=== PATIENT | male | born 1960 | race Caucasian/White ===

== ENCOUNTER → 2019-03-24 | Outpatient (CLI) | payer BC ==
[2019-03-24 20:36] LABS: BASO % 0.2 % (0.0-1.0); EOS # 0.2 10^3/uL (0.0-0.5); EOS % 1.5 % (0.0-3.0); HEMATOCRIT 45.4 % (42.0-52.0); LYMPH # 2.7 10^3/uL (1.5-5.0); LYMPH % 21.6 % (24.0-44.0); MEAN CORPUSCULAR HEMOGLOBIN 30.1 pg (27.0-33.0); MEAN CORPUSCULAR VOLUME 91.2 fl (80.0-96.0); MONO % 8.2 % (0.0-5.0); NEUTROPHILS # 8.5 10^3/uL (1.5-8.5); PLATELET COUNT, AUTOMATED 298 10^3/uL (150-450); RED BLOOD COUNT 4.98 10^6/uL (4.30-6.10); WHITE BLOOD COUNT 12.5 10^3/uL (4.0-10.0)
[2019-03-24 20:44] LABS: ALBUMIN 3.7 GM/DL (3.2-5.2); ALT/SGPT 69 U/L (12-78); BILIRUBIN,TOTAL 0.5 MG/DL (0.2-1.0); BLOOD UREA NITROGEN 22 MG/DL (7-18); CALCIUM LEVEL 9.2 MG/DL (8.5-10.1); CARBON DIOXIDE LEVEL 30 MEQ/L (21-32); CHLORIDE LEVEL 104 MEQ/L (98-107); CREATININE FOR GFR 0.91 MG/DL (0.70-1.30); GLOMERULAR FILTRATION RATE > 60.0 (>56); GLUCOSE, FASTING 93 MG/DL (70-100); LIPASE 94 U/L (73-393); POTASSIUM SERUM 4.8 MEQ/L (3.5-5.1); SODIUM LEVEL 140 MEQ/L (136-145); TOTAL PROTEIN 6.6 GM/DL (6.4-8.2)
== END ==
LOC: M WUC 18:03
PROVIDERS: ATTEND Physician Assistant
DX: R10.9 Unspecified abdominal pain (principal)

== ENCOUNTER → 2019-03-25 | Outpatient (CLI) | payer BC ==
[~2019-03-25] MED LIST: ISOVUE-370 76% 100ML VIAL (Q9967) As Ordered ONE
--- NOTE | 2019-03-25 13:44 | REP ---
CT abdomen and pelvis without and with IV contrast: History: Abdomen pain. CT contrast dose: 100 mL of intravenous Isovue 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 The lung bases are clear on axial CT images. There is mild diffuse fatty infiltration of the liver. The liver is mildly enlarged with a midclavicular line craniocaudal span of 17.6 cm. No focal hepatic lesion is seen. There is a small quantity of fluid adjacent to the liver and spleen in the upper abdomen. There is no evidence of free intraperitoneal air. There is some mild ascites in the pelvic reflections as well. The spleen is normal in size and homogeneous in texture. No adrenal lesion is seen on either side. No abnormality is noted in the pancreas. There is a descending duodenal diverticulum. Gallbladder is unremarkable. No retroperitoneal mass or adenopathy is seen. The kidneys enhance symmetrically and are morphologically intact. There is no evidence of renal mass. Delayed postcontrast images show no filling defect in the collecting system. No bladder mass lesion is observed. Ureters describe a normal course to the urinary bladder. There is moderate mural thickening affecting most of the small intestinal bowel loops in the central abdomen consistent with enteropathy. No obstructive lesion is seen. There is some mild hyperenhancement. There is no evidence of pneumatosis intestinalis. No abscess or free air. The distal jejunum and ileum is most involved. No mural thickening is seen in the colon. There is left colonic diverticulosis without CT evidence of diverticulitis. The appendix is surgically absent. There is a small left inguinal hernia transmitting intra-abdominal fat. No bony destructive lesion is appreciated. Impression: 1. Fatty infiltration of the liver with mild hepatomegaly. 2. Extensive distal jejunal and ileal loop small bowel mural thickening consistent with inflammatory bowel disease or other enteropathy. 3. Minimal ascites. 4. Left inguinal hernia transmits a small quantity of abdominal fat. 5. Left colonic diverticulosis. 6. No evidence of free air, obstructive lesion, abscess, or mass. Electronically Signed by Yovany Newton MD 03/25/2019 02:30 P
== END ==
LOC: M RAD 11:04
PROVIDERS: ATTEND Physician Assistant
DX: K76.0 Fatty (change of) liver, not elsewhere classified (principal); K44.9 Diaphragmatic hernia without obstruction or gangrene; K57.90 Diverticulosis of intestine, part unspecified, without perforation or abscess without bleeding
CPT/HCPCS: 74178; Q9967

== ENCOUNTER → 2019-03-25 | Outpatient (CLI) | payer BC ==
--- NOTE | 2019-03-25 13:28 | REP ---
Abdomen series: Four views. History: Pain. Findings: Upright chest radiograph is unremarkable. There is no evidence of infiltrate or free subdiaphragmatic air. Heart size is normal. Supine and erect views of the abdomen show several loops of air-filled mildly dilated small bowel in the upper abdomen with air-fluid levels. There is air in the transverse colon and stool is seen in the ascending and descending segments without colonic distension. There is no evidence of free air. Vascular calcification is noted. No other pathologic calcification is seen. No mass lesion is seen. Impression: Dilated small bowel loops with air-fluid levels, question ileus versus obstruction. No evidence of free air. Electronically Signed by Yovany Newton MD 03/25/2019 02:29 P
== END ==
LOC: M WUC 10:11
PROVIDERS: ATTEND Physician Assistant
DX: R10.9 Unspecified abdominal pain (principal)

== ENCOUNTER 2019-07-03 06:44 | Day surgery (SDC) | payer BC ==
[~2019-07-03] VITALS: Ht 170.2 cm; Wt 90.7 kg
[~2019-07-03 06:44] MED LIST changes: -ISOVUE-370 76% 100ML VIAL (Q9967) As Ordered ONE; +MULTCAP PO; +NS 1,000 ML IV ONE
[2019-07-03] MEDS ORDERED: propofoL 200 MG/20 ML VIAL As Ordered ONE ×2 (07:08→07:40)
[2019-07-03] MEDS ORDERED: LIDOCAINE 2% INJ 100 MG/5 ML SDV (FOR ANES.) As Ordered ONE (07:08)
--- NOTE | 2019-07-03 07:49 | ROOR ---
Patient Name: Luther Penn Procedure Date: 07/03/2019 7:25 AM Date of : 1960 Age: 59 Room: [facility] Gender: Male Note Status: Finalized Procedure: Colonoscopy Indications: Hematochezia Providers: Jose Alfredo Rondno DO Referring MD: 1. No Referring Physician 1. No Referring Physician, Admin. Requesting Provider: Medicines: Propofol per Anesthesia Complications: No immediate complications. Procedure: Pre-Anesthesia Assessment: - Prior to the procedure, a History and Physical was performed, and patient medications and allergies were reviewed. The patient is competent. The risks and benefits of the procedure and the sedation options and risks were discussed with the patient. All questions were answered and informed consent was obtained. Patient identification and proposed procedure were verified by the physician, the nurse, the anesthesiologist and the limited radiology technician in the endoscopy suite. Mental Status Examination: alert and oriented. Airway Examination: normal oropharyngeal airway and neck mobility. Respiratory Examination: clear to auscultation. CV Examination: normal. Prophylactic Antibiotics: The patient does not require prophylactic antibiotics. Prior Anticoagulants: The patient has taken no previous anticoagulant or antiplatelet agents. ASA Grade Assessment: II - A patient with mild systemic disease. After reviewing the risks and benefits, the patient was deemed in satisfactory condition to undergo the procedure. The anesthesia plan was to use monitored anesthesia care (MAC). Immediately prior to administration of medications, the patient was re-assessed for adequacy to receive sedatives. The heart rate, respiratory rate, oxygen saturations, blood pressure, adequacy of pulmonary ventilation, and response to care were monitored throughout the procedure. The physical status of the patient was re-assessed after the procedure. The Colonoscope was introduced through the anus and advanced to the cecum, identified by appendiceal orifice and ileocecal valve. The colonoscopy was performed without difficulty. The patient tolerated the procedure well. Findings: Multiple medium-mouthed diverticula were found in the sigmoid colon. Estimated blood loss: none. Non-bleeding internal hemorrhoids were found during retroflexion. The hemorrhoids were Grade I (internal hemorrhoids that do not prolapse). The exam was otherwise without abnormality on direct and retroflexion views. Impression: - Diverticulosis in the sigmoid colon. - Non-bleeding internal hemorrhoids. - The examination was otherwise normal on direct and retroflexion views. - No specimens collected. Recommendation: - Patient has a contact number available for emergencies. The signs and symptoms of potential delayed complications were discussed with the patient. Return to normal activities tomorrow. Written discharge instructions were provided to the patient. - Repeat colonoscopy in 5-10 years for screening purposes. - Return to my office PRN. Jose Alfredo Rondon DO 07/03/2019 7:48:57 AM Electronically signed by Jose Alfredo Rondon DO Number of Addenda: 0 Note Initiated On: 07/03/2019 7:25 AM Estimated Blood Loss: Estimated blood loss was minimal.
[2019-07-03 08:11] VITALS: BP 124/82
== END 2019-07-03 08:11 | disposition home or self-care (01) ==
LOC: M OPP 06:44
PROVIDERS: ATTEND Surgery
DX: K92.1 Melena (principal); K64.0 First degree hemorrhoids; K57.30 Diverticulosis of large intestine without perforation or abscess without bleeding; Z88.2 Allergy status to sulfonamides

== ENCOUNTER 2020-12-18 09:14 | Emergency (ER) | payer BC ==
[~2020-12-18] VITALS: Ht 170.2 cm; Wt 95.5 kg
[~2020-12-18 09:14] MED LIST changes: -NS 1,000 ML IV ONE
[2020-12-18 09:46] LABS: BASO % 0.5 % (0.0-1.0); EOS # 0.1 10^3/uL (0.0-0.5); EOS % 1.6 % (0.0-3.0); HEMATOCRIT 43.2 % (42.0-52.0); HEMOGLOBIN 14.3 g/dl (13.5-17.5); LYMPH # 2.3 10^3/uL (1.5-5.0); LYMPH % 29.5 % (24.0-44.0); MEAN CORPUSCULAR HEMOGLOBIN 28.9 pg (27.0-33.0); MEAN CORPUSCULAR HGB CONC 33.1 g/dl (32.0-36.5); MEAN CORPUSCULAR VOLUME 87.4 fl (80.0-96.0); MONO # 0.7 10^3/uL (0.0-0.8); MONO % 9.3 % (2.0-8.0); NEUTROPHILS # 4.6 10^3/uL (1.5-8.5); NEUTROPHILS % 58.5 % (36.0-66.0); PLATELET COUNT, AUTOMATED 238 10^3/uL (150-450); RED BLOOD COUNT 4.94 10^6/uL (4.30-6.10); WHITE BLOOD COUNT 7.9 10^3/uL (4.0-10.0)
--- NOTE | 2020-12-18 09:50 | REP ---
INDICATION: CHEST PAIN COMPARISON: 03/25/2019 TECHNIQUE: Portable AP view of the chest FINDINGS: The mediastinum and cardiac silhouette are stable and within normal limits for portable technique. The lung shafer are clear without acute consolidation, effusion, or pneumothorax. Skeletal structures are intact. IMPRESSION: No acute cardiopulmonary process appreciated. <Electronically signed by Tylor Loredo > 12/18/20 [id number]
[2020-12-18 09:55] LABS: INR 0.89; PROTHROMBIN TIME 12.2 SECONDS (12.5-14.3)
[2020-12-18 09:56] LABS: PARTIAL THROMBOPLASTIN TIME 25.8 SECONDS (24.2-38.5)
[2020-12-18] MEDS ORDERED: ASPIRIN 81 MG CHEW TABLET PO ONE (10:00)
[2020-12-18 10:21] LABS: ALBUMIN 4.2 GM/DL (3.2-5.2); ALT/SGPT 53 U/L (12-78); BILIRUBIN,DIRECT < 0.1 MG/DL (0.0-0.2); BILIRUBIN,TOTAL 0.4 MG/DL (0.2-1.0); BLOOD UREA NITROGEN 21 MG/DL (7-18); CALCIUM LEVEL 8.7 MG/DL (8.5-10.1); CARBON DIOXIDE LEVEL 29 MEQ/L (21-32); CHLORIDE LEVEL 106 MEQ/L (98-107); CREATININE FOR GFR 0.78 MG/DL (0.70-1.30); FREE T4 0.66 NG/DL (0.76-1.46); GLOMERULAR FILTRATION RATE > 60.0 (>56); GLUCOSE, FASTING 136 MG/DL (70-100); LIPASE 105 U/L (73-393); NT-PRO BNP 187 PG/ML (<125); SODIUM LEVEL 139 MEQ/L (136-145); TOTAL PROTEIN 7.2 GM/DL (6.4-8.2)
[2020-12-18] MEDS ORDERED: HEPARIN SOD (PORCINE) 5000UNITS/ML 1ML VIAL/SYRINGE IV ONE (14:20)
[2020-12-18] MEDS ORDERED: HEPARIN DRIP 25,000 UNITS in IV 1 EA IV SCH (14:20)
[2020-12-18] MEDS ORDERED: CLOPIDOGREL 300 MG TAB (PLAVIX) PO ONE (14:20)
[2020-12-18 15:30] LABS: RSV AMPLIFICATION NEGATIVE (NEGATIVE)
[2020-12-18 16:43] VITALS: BP 137/79
--- NOTE | 2020-12-18 20:49 | ECGEPIP ---
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
--- NOTE | 2020-12-18 20:50 | ECGEPIP ---
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
--- NOTE | 2020-12-18 20:51 | ECGEPIP ---
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
== END 2020-12-18 16:53 | disposition short-term general hospital (02) ==
LOC: M ED 09:14
DX: I21.4 Non-ST elevation (NSTEMI) myocardial infarction (principal); Z88.2 Allergy status to sulfonamides
CPT/HCPCS: 71045; 80048; 80076; 83690; 83880; 84439; 84443; 84484; 85025; 85610; 85730; 87631; 93005; 93041; 94760; 96374; 99285; J1644

== ENCOUNTER → 2021-01-04 | Outpatient (REF) | payer BC, SELFPAY ==
[2021-01-04 13:43] LABS: HEMATOCRIT 34.3 % (42.0-52.0); HEMOGLOBIN 11.1 g/dl (13.5-17.5); MEAN CORPUSCULAR HEMOGLOBIN 29.6 pg (27.0-33.0); MEAN CORPUSCULAR HGB CONC 32.4 g/dl (32.0-36.5); MEAN CORPUSCULAR VOLUME 91.5 fl (80.0-96.0); PLATELET COUNT, AUTOMATED 473 10^3/uL (150-450); RED BLOOD COUNT 3.75 10^6/uL (4.30-6.10)
[2021-01-04 14:15] LABS: ALBUMIN 3.9 GM/DL (3.2-5.2); ALT/SGPT 89 U/L (12-78); BILIRUBIN,TOTAL 0.6 MG/DL (0.2-1.0); BLOOD UREA NITROGEN 21 MG/DL (7-18); CALCIUM LEVEL 9.5 MG/DL (8.5-10.1); CARBON DIOXIDE LEVEL 28 MEQ/L (21-32); CHLORIDE LEVEL 102 MEQ/L (98-107); CHOLESTEROL LEVEL 159 MG/DL (<200); CHOLESTEROL RISK RATIO 4.076 (<5); FREE T4 0.86 NG/DL (0.76-1.46); GLOMERULAR FILTRATION RATE > 60.0 (>56); GLUCOSE, FASTING 89 MG/DL (70-100); HDL CHOLESTEROL 39 MG/DL (>40); LDL CHOLESTEROL 76 MG/DL (<100); NON-HDL-C 120 MG/DL; POTASSIUM SERUM 5.1 MEQ/L (3.5-5.1); SODIUM LEVEL 135 MEQ/L (136-145); TRIGLYCERIDES LEVEL 220 MG/DL (<150)
== END ==
LOC: M SFHCADAM 09:54
PROVIDERS: ATTEND Family Medicine
DX: I25.810 Atherosclerosis of coronary artery bypass graft(s) without angina pectoris (principal); G47.33 Obstructive sleep apnea (adult) (pediatric); E78.5 Hyperlipidemia, unspecified; K76.0 Fatty (change of) liver, not elsewhere classified; E03.9 Hypothyroidism, unspecified; Z12.5 Encounter for screening for malignant neoplasm of prostate

== ENCOUNTER → 2021-04-15 | Outpatient (CLI) | payer BC ==
--- NOTE | 2021-04-19 16:13 | SLEEPCENT ---
DATE: 04/15/2021 ORDERED BY: KAY Field Nocturnal polysomnography was performed for evaluation of sleep physiology in this patient with a history of excessive somnolence and nonrestorative sleep. Eight hours and 34 minutes of data were reviewed. There were 356 minutes of sleep identified. Sleep latency was normal at 9 minutes. REM latency was normal at 57 minutes. Sleep architecture showed fragmentation and period of wake particularly late in the study. There were four REM periods noted. Overall sleep efficiency was 69.9%. The electrocardiogram showed a sinus rhythm with an average heart rate of 65 beats per minute. EEG showed normal waveforms for wake and sleep. There were 287 respiratory events identified of 10 seconds in duration or greater for an apnea-hypopnea index of 48.4. The events were primarily obstructive, not exclusive to sleep stage nor sleep position. Arousals from respiratory events occurred 22.2 times per hour, and oxygen desaturations were seen into the 70s. IMPRESSIONS: Severe obstructive sleep apnea syndrome (G47.33). Apnea-hypopnea index 48.4. RECOMMENDATION: The patient should be encouraged to return to [facility] for pressure therapy. In the interim, alcohol and sedative avoidance should be practiced and caution exercised during the operation of motor vehicles. cc: RYAN ROSARIO MD
== END ==
LOC: M SLEEP 20:00
PROVIDERS: ATTEND Physician Assistant
DX: R40.0 Somnolence (principal)

== ENCOUNTER → 2021-07-01 | Outpatient (CLI) | payer BC | LOC: M SLEEP 20:00 | PROVIDERS: ATTEND Physician Assistant | DX: G47.33 Obstructive sleep apnea (adult) (pediatric) (principal) ==

== ENCOUNTER → 2021-10-28 | Outpatient (REF) | payer BC ==
[2021-10-28 17:37] LABS: FREE T4 0.83 NG/DL (0.76-1.46); THYROID STIMULATING HORMONE 5.02 uIU/ML (0.358-3.740)
== END ==
LOC: M SFHCADAM 13:56
PROVIDERS: ATTEND Family Medicine
DX: E03.9 Hypothyroidism, unspecified (principal); R79.89 Other specified abnormal findings of blood chemistry

== ENCOUNTER → 2022-05-04 | Outpatient (REF) | payer BC ==
[2022-05-04 13:15] LABS: BASO % 0.3 % (0.0-1.0); EOS # 0.1 10^3/uL (0.0-0.5); EOS % 1.6 % (0.0-3.0); HEMATOCRIT 39.9 % (42.0-52.0); HEMOGLOBIN 12.9 g/dl (13.5-17.5); LYMPH # 1.9 10^3/uL (1.5-5.0); LYMPH % 25.2 % (24.0-44.0); MEAN CORPUSCULAR HEMOGLOBIN 28.7 pg (27.0-33.0); MEAN CORPUSCULAR HGB CONC 32.3 g/dl (32.0-36.5); MEAN CORPUSCULAR VOLUME 88.9 fl (80.0-96.0); MONO # 0.6 10^3/uL (0.0-0.8); NEUTROPHILS # 4.9 10^3/uL (1.5-8.5); NEUTROPHILS % 64.6 % (36.0-66.0); PLATELET COUNT, AUTOMATED 237 10^3/uL (150-450); RED BLOOD COUNT 4.49 10^6/uL (4.30-6.10); WHITE BLOOD COUNT 7.5 10^3/uL (4.0-10.0)
[2022-05-04 14:00] LABS: ALT/SGPT 72 U/L (12-78); BILIRUBIN,TOTAL 0.4 MG/DL (0.2-1.0); BLOOD UREA NITROGEN 18 MG/DL (7-18); CALCIUM LEVEL 9.2 MG/DL (8.8-10.2); CARBON DIOXIDE LEVEL 23 MEQ/L (21-32); CHLORIDE LEVEL 107 MEQ/L (98-107); CHOLESTEROL LEVEL 162 MG/DL (<200); CHOLESTEROL RISK RATIO 3.521 (<5); CREATININE FOR GFR 0.75 MG/DL (0.70-1.30); FERRITIN 590 NG/ML (26-388); GLOMERULAR FILTRATION RATE > 60.0 (>49); GLUCOSE, FASTING 94 MG/DL (70-100); HDL CHOLESTEROL 46 MG/DL (>40); LDL CHOLESTEROL 79 MG/DL (<100); NON-HDL-C 116 MG/DL; POTASSIUM SERUM 3.9 MEQ/L (3.5-5.1); SODIUM LEVEL 138 MEQ/L (136-145); TOTAL PROTEIN 6.9 GM/DL (6.4-8.2); TRIGLYCERIDES LEVEL 187 MG/DL (<150)
== END ==
LOC: M SFHCADAM 09:14
PROVIDERS: ATTEND Physician Assistant
DX: E03.9 Hypothyroidism, unspecified (principal); E78.5 Hyperlipidemia, unspecified; R79.89 Other specified abnormal findings of blood chemistry; Z12.5 Encounter for screening for malignant neoplasm of prostate

== ENCOUNTER → 2022-06-14 | Outpatient (CLI) | payer BC | LOC: M SOG 08:02 | PROVIDERS: ATTEND Orthopaedic Surgery Hand Surgery | DX: M67.432 Ganglion, left wrist (principal) ==

== ENCOUNTER → 2022-06-15 | Outpatient (CLI) | payer BC | LOC: M SOG 13:30 | PROVIDERS: ATTEND Orthopaedic Surgery Hand Surgery | DX: M67.432 Ganglion, left wrist (principal) ==

== ENCOUNTER → 2022-07-06 | Outpatient (REF) | payer BC ==
[2022-07-06 14:11] LABS: HEMOGLOBIN A1c 5.6 % (4.0-6.0)
== END ==
LOC: M SFHCADAM 13:10
PROVIDERS: ATTEND Physician Assistant
DX: Z68.36 Body mass index [BMI] 36.0-36.9, adult (principal)

== ENCOUNTER → 2022-07-07 | Outpatient (CLI) | payer BC ==
[2022-07-07 17:16] LABS: BLOOD UREA NITROGEN 23 MG/DL (9-23); GLOMERULAR FILTRATION RATE > 60.0 (>49)
== END ==
LOC: M LAB 15:46
PROVIDERS: ATTEND Physician Assistant
DX: M25.832 Other specified joint disorders, left wrist (principal)

== ENCOUNTER → 2022-07-11 | Outpatient (CLI) | payer BC ==
[~2022-07-11] MED LIST changes: +PROHANCE 279.3MG/ML 15ML VIAL ONE; +PROHANCE 279.3MG/ML 5ML VIAL ONE
== END ==
LOC: M PLAIMG 13:44
PROVIDERS: ATTEND Orthopaedic Surgery Hand Surgery
DX: D17.79 Benign lipomatous neoplasm of other sites (principal)

== ENCOUNTER → 2022-09-05 | Outpatient (CLI) | payer BC ==
[~2022-09-05] MED LIST changes: +ASPI81TA26 PO; +ATOR80TA59 PO; +METO75TA PO; -PROHANCE 279.3MG/ML 15ML VIAL ONE; -PROHANCE 279.3MG/ML 5ML VIAL ONE; +SYNT50TA PO
== END ==
LOC: M LABSMTC 10:14
PROVIDERS: ATTEND Anesthesiology
DX: Z01.818 Encounter for other preprocedural examination (principal); Z11.52 Encounter for screening for COVID-19

== ENCOUNTER 2022-09-08 06:02 | Day surgery (SDC) | payer BC ==
[~2022-09-08] VITALS: Ht 170.2 cm; Wt 108.9 kg
[2022-09-08] MEDS ORDERED: LR 1,000 ML IV SCH (06:40)
[2022-09-08] MEDS ORDERED: ceFAZolin SOD 2 GM in IV 1 EA IV ONE (07:00)
[2022-09-08] MEDS ORDERED: propofoL 200 MG/20 ML VIAL As Ordered ONE (07:00)
[2022-09-08] MEDS ORDERED: LIDOCAINE 2% 100MG/5ML SDV (FOR ANES.) As Ordered ONE (07:00)
[2022-09-08] MEDS ORDERED: ONDANSETRON 4MG 2ML VIAL As Ordered ONE (07:00)
[2022-09-08] MEDS ORDERED: fentaNYL 100 MCG/2 ML INJECTION As Ordered ONE (07:02)
[2022-09-08] MEDS ORDERED: MIDAZOLAM INJ 2MG/2ML VIAL As Ordered ONE (07:02)
[2022-09-08] MEDS ORDERED: BACITRACIN OINTMENT 30GM TUBE As Ordered ONE (07:10)
[2022-09-08] MEDS: BUPIVACAINE HCL 0.25% 30ML VIAL As Ordered ONE ×2 (08:00→08:20)
[2022-09-08] MEDS ORDERED: KETOROLAC 60MG 2ML VIAL As Ordered ONE (08:03)
[2022-09-08] MEDS ORDERED: MORPHINE 2 MG/ML 1ML VIAL IV PRN (08:15)
[2022-09-08] MEDS ORDERED: fentaNYL 100 MCG/2 ML INJECTION IV PRN (08:15)
[2022-09-08] MEDS ORDERED: oxyCODONE 5MG TAB PO PRN (08:15)
[2022-09-08] MEDS ORDERED: ONDANSETRON 4MG 2ML VIAL IV PRN (08:15)
[2022-09-08 09:28] VITALS: BP 138/94
== END 2022-09-08 09:30 | disposition home or self-care (01) ==
LOC: M SDC 06:02
PROVIDERS: ATTEND Orthopaedic Surgery Hand Surgery
DX: D17.22 Benign lipomatous neoplasm of skin and subcutaneous tissue of left arm (principal); I25.10 Atherosclerotic heart disease of native coronary artery without angina pectoris; I10 Essential (primary) hypertension; E03.9 Hypothyroidism, unspecified; G47.30 Sleep apnea, unspecified; Z95.1 Presence of aortocoronary bypass graft; Z88.2 Allergy status to sulfonamides; Z79.899 Other long term (current) drug therapy; Z79.82 Long term (current) use of aspirin; Z79.890 Hormone replacement therapy
CPT/HCPCS: 11406; 88305; J0690; J1100; J1885; J2250; J2405; J3010; S0020

== ENCOUNTER → 2023-06-14 | Outpatient (REF) | payer BC ==
[2023-06-14 17:29] LABS: ALBUMIN 4.1 G/DL (3.2-5.2); ALKALINE PHOSPHATASE 54 U/L (46-116); ALT/SGPT 46 U/L (7.0-40); AST/SGOT 22 U/L (<34); BILIRUBIN,TOTAL 0.4 MG/DL (0.3-1.2); BLOOD UREA NITROGEN 17 MG/DL (9-23); CALCIUM LEVEL 9.8 MG/DL (8.3-10.6); CARBON DIOXIDE LEVEL 26 MMOL/L (20-31); CHLORIDE LEVEL 108 MMOL/L (98-107); CHOLESTEROL LEVEL 189 MG/DL (<200); CHOLESTEROL RISK RATIO 4.26 (<5); CREATININE FOR GFR 0.62 MG/DL (0.70-1.30); FREE T4 0.93 NG/DL (0.89-1.76); GLOMERULAR FILTRATION RATE > 60.0 (>49); GLUCOSE, FASTING 102 MG/DL (74-106); HDL CHOLESTEROL 44.3 MG/DL (>40); IRON (FE) 88 UG/DL (65-175); LDL CHOLESTEROL 99.3 MG/DL (<100); NON-HDL-C 144.7 MG/DL; PERCENT SATURATION 30.7 % (19.7-50.0); POTASSIUM SERUM 4.1 MMOL/L (3.5-5.1); SODIUM LEVEL 140 MMOL/L (136-145); THYROID STIMULATING HORMONE 6.312 uIU/ML (0.55-4.78); TOTAL IRON BINDING CAPACITY 287 UG/DL (250-425); TOTAL PROTEIN 6.5 G/DL (5.7-8.2); TRIGLYCERIDES LEVEL 227 MG/DL (<150)
[2023-06-14 17:31] LABS: FERRITIN 428.4 NG/ML (10.5-307.3)
[2023-06-14 17:50] LABS: HEMATOCRIT 40.9 % (42.0-52.0); HEMOGLOBIN 13.9 g/dl (13.5-17.5); MEAN CORPUSCULAR HEMOGLOBIN 29.7 pg (27.0-33.0); MEAN CORPUSCULAR VOLUME 87.4 fl (80.0-96.0); PLATELET COUNT, AUTOMATED 197 10^3/uL (150-450); RED BLOOD COUNT 4.68 10^6/uL (4.30-6.10)
== END ==
LOC: M SFHCADAM 13:16
PROVIDERS: ATTEND Family Medicine
DX: E03.9 Hypothyroidism, unspecified (principal); R79.89 Other specified abnormal findings of blood chemistry; E78.5 Hyperlipidemia, unspecified; Z12.5 Encounter for screening for malignant neoplasm of prostate

== ENCOUNTER → 2023-12-18 | Outpatient (REF) | payer BC ==
[2023-12-18 12:50] LABS: HEMATOCRIT 41.5 % (42.0-52.0); MEAN CORPUSCULAR HEMOGLOBIN 29.9 pg (27.0-33.0); MEAN CORPUSCULAR HGB CONC 33.7 g/dl (32.0-36.5); MEAN CORPUSCULAR VOLUME 88.5 fl (80.0-96.0); PLATELET COUNT, AUTOMATED 206 10^3/uL (150-450); RED BLOOD COUNT 4.69 10^6/uL (4.30-6.10); WHITE BLOOD COUNT 7.3 10^3/uL (4.0-10.0)
[2023-12-18 12:57] LABS: ALKALINE PHOSPHATASE 55 U/L (46-116); ALT/SGPT 56 U/L (7.0-40); AST/SGOT 25 U/L (<34); BILIRUBIN,TOTAL 0.5 MG/DL (0.3-1.2); BLOOD UREA NITROGEN 19 MG/DL (9-23); CALCIUM LEVEL 9.5 MG/DL (8.3-10.6); CARBON DIOXIDE LEVEL 25 MMOL/L (20-31); CHLORIDE LEVEL 107 MMOL/L (98-107); CHOLESTEROL LEVEL 176 MG/DL (<200); CHOLESTEROL RISK RATIO 3.87 (<5); CREATININE FOR GFR 0.72 MG/DL (0.70-1.30); GLOMERULAR FILTRATION RATE > 60.0 (>49); GLUCOSE, FASTING 94 MG/DL (74-106); HDL CHOLESTEROL 45.4 MG/DL (>40); LDL CHOLESTEROL 87.6 MG/DL (<100); NON-HDL-C 130.6 MG/DL; POTASSIUM SERUM 4.6 MMOL/L (3.5-5.1); SODIUM LEVEL 138 MMOL/L (136-145); TOTAL PROTEIN 6.5 G/DL (5.7-8.2); TRIGLYCERIDES LEVEL 215 MG/DL (<150)
[2023-12-18 13:00] LABS: THYROID STIMULATING HORMONE 3.964 uIU/ML (0.55-4.78)
[2023-12-18 13:01] LABS: FREE T4 1.03 NG/DL (0.89-1.76)
== END ==
LOC: M SFHCADAM 07:58
PROVIDERS: ATTEND Family Medicine
DX: E03.9 Hypothyroidism, unspecified (principal); E78.5 Hyperlipidemia, unspecified; R79.89 Other specified abnormal findings of blood chemistry; K76.0 Fatty (change of) liver, not elsewhere classified

== ENCOUNTER → 2024-02-01 | Outpatient (CLI) | payer BC | LOC: M LAB 10:08 | PROVIDERS: ATTEND Family Medicine | DX: D58.2 Other hemoglobinopathies (principal); R79.89 Other specified abnormal findings of blood chemistry ==

== ENCOUNTER → 2024-05-28 | Outpatient (REF) | payer BC ==
[2024-05-28 13:24] LABS: HEMATOCRIT 42.5 % (42.0-52.0); HEMOGLOBIN 13.9 g/dl (13.5-17.5); MEAN CORPUSCULAR HEMOGLOBIN 29.1 pg (27.0-33.0); MEAN CORPUSCULAR HGB CONC 32.7 g/dl (32.0-36.5); MEAN CORPUSCULAR VOLUME 89.1 fl (80.0-96.0); PLATELET COUNT, AUTOMATED 219 10^3/uL (150-450); RED BLOOD COUNT 4.77 10^6/uL (4.30-6.10); WHITE BLOOD COUNT 7.2 10^3/uL (4.0-10.0)
[2024-05-28 13:58] LABS: THYROID STIMULATING HORMONE 4.776 uIU/ML (0.55-4.78)
[2024-05-28 13:59] LABS: FREE T4 1.04 NG/DL (0.89-1.76)
[2024-05-28 14:00] LABS: ALBUMIN 3.9 G/DL (3.2-5.2); ALKALINE PHOSPHATASE 51 U/L (40-129); ALT/SGPT 52 U/L (7.0-40); AST/SGOT 29 U/L (<34); BILIRUBIN,TOTAL 0.6 MG/DL (0.3-1.2); BLOOD UREA NITROGEN 16 MG/DL (9-23); CALCIUM LEVEL 9.6 MG/DL (8.3-10.6); CARBON DIOXIDE LEVEL 26 MMOL/L (20-31); CHLORIDE LEVEL 107 MMOL/L (98-107); CHOLESTEROL LEVEL 191 MG/DL (<200); CHOLESTEROL RISK RATIO 4.43 (<5); CREATININE FOR GFR 0.71 MG/DL (0.70-1.30); FERRITIN 604.7 NG/ML (10.5-307.3); GLOMERULAR FILTRATION RATE > 60.0 (>49); GLUCOSE, FASTING 98 MG/DL (74-106); HDL CHOLESTEROL 43.1 MG/DL (>40); LDL CHOLESTEROL 101.1 MG/DL (<100); NON-HDL-C 147.9 MG/DL; POTASSIUM SERUM 4.4 MMOL/L (3.5-5.1); SODIUM LEVEL 142 MMOL/L (136-145); TOTAL PROTEIN 6.6 G/DL (5.7-8.2); TRIGLYCERIDES LEVEL 234 MG/DL (<150)
== END ==
LOC: M SFHCADAM 08:45
PROVIDERS: ATTEND Family Medicine
DX: E83.110 Hereditary hemochromatosis (principal); I25.810 Atherosclerosis of coronary artery bypass graft(s) without angina pectoris; E78.5 Hyperlipidemia, unspecified; K76.0 Fatty (change of) liver, not elsewhere classified; Z13.1 Encounter for screening for diabetes mellitus

== ENCOUNTER → 2024-10-24 | Outpatient (REF) | payer BC ==
[~2024-10-24] MED LIST changes: +VITA250T27 PO
[2024-10-24 18:02] LABS: ALBUMIN 3.9 G/DL (3.2-5.2); BILIRUBIN,TOTAL 0.3 MG/DL (0.3-1.2); CALCIUM LEVEL 9.1 MG/DL (8.3-10.6); CREATININE FOR GFR 0.97 MG/DL (0.70-1.30); GLOMERULAR FILTRATION RATE 87.7 (>49); POTASSIUM SERUM 4.3 MMOL/L (3.5-5.1); TOTAL PROTEIN 6.6 G/DL (5.7-8.2)
[2024-10-24 18:09] LABS: BASO % 0.6 % (0.0-1.0); EOS # 0.2 10^3/uL (0.0-0.5); EOS % 2.4 % (0.0-3.0); HEMATOCRIT 43.1 % (42.0-52.0); HEMOGLOBIN 13.9 g/dl (13.5-17.5); LYMPH # 2.4 10^3/uL (1.5-5.0); LYMPH % 36.2 % (24.0-44.0); MEAN CORPUSCULAR HEMOGLOBIN 28.5 pg (27.0-33.0); MEAN CORPUSCULAR HGB CONC 32.3 g/dl (32.0-36.5); MEAN CORPUSCULAR VOLUME 88.5 fl (80.0-96.0); MONO # 0.6 10^3/uL (0.0-0.8); MONO % 9.4 % (2.0-8.0); NEUTROPHILS # 3.5 10^3/uL (1.5-8.5); NEUTROPHILS % 51.3 % (36.0-66.0); PLATELET COUNT, AUTOMATED 219 10^3/uL (150-450); RED BLOOD COUNT 4.87 10^6/uL (4.30-6.10); WHITE BLOOD COUNT 6.7 10^3/uL (4.0-10.0)
== END ==
LOC: M LABDRWAD 17:28
PROVIDERS: ATTEND Internal Medicine Hematology & Oncology
DX: E83.119 Hemochromatosis, unspecified (principal)

== ENCOUNTER 2024-12-24 06:58 | Day surgery (SDC) | payer OTHER ==
[~2024-12-24] VITALS: Ht 170.2 cm; Wt 108.9 kg
[~2024-12-24 06:58] MED LIST changes: +LEVO75TA4 PO; +LIDOCAINE 2% 100 MG/5 ML SDV (FOR ANES.) As Ordered ONE
[2024-12-24 08:28] VITALS: TEMP 98.3
[2024-12-24 08:39] VITALS: BP 128/87; O2SAT 94
== END 2024-12-24 08:39 | disposition home or self-care (01) ==
LOC: M OPP 06:58
PROVIDERS: ATTEND Surgery
DX: Z12.11 Encounter for screening for malignant neoplasm of colon (principal); D12.2 Benign neoplasm of ascending colon; K57.30 Diverticulosis of large intestine without perforation or abscess without bleeding; G47.30 Sleep apnea, unspecified; Z88.2 Allergy status to sulfonamides; Z79.82 Long term (current) use of aspirin; Z79.899 Other long term (current) drug therapy